=== PATIENT | male | born 1990 | race Two or more races ===

== ENCOUNTER 2019-08-25 09:33 | Outpatient (CLI) | payer OTHER ==
[~2019-08-25 09:33] MED LIST: ZITHROMAX TRI-500 MG PO
== END 2019-08-25 09:37 | disposition home or self-care (01) ==
LOC: MRI 09:33
DX: M47.892 Other spondylosis, cervical region (principal); M47.894 Other spondylosis, thoracic region; M75.51 Bursitis of right shoulder; R10.13 Epigastric pain; R10.11 Right upper quadrant pain; D13.4 Benign neoplasm of liver
CPT/HCPCS: 74185

== ENCOUNTER 2020-11-05 09:11 | Outpatient (CLI) | payer OTHER | END 2020-11-05 09:32 | disposition home or self-care (01) | LOC: SONOGRAMA 09:11 → MAMO-SONO 09:15 → SONOGRAMA 09:32 | PROVIDERS: ATTEND Physical Medicine & Rehabilitation | DX: I86.1 Scrotal varices (principal) ==